=== PATIENT | female | born 1955 | race Caucasian/White ===

== ENCOUNTER 2024-08-24 11:22 | Day surgery (SDC) | payer MEDICARE, OTHER ==
[~2024-08-24] VITALS: Ht 157.5 cm; Wt 78.4 kg
[2024-08-24] VITALS (14 sets, daily range): BP systolic 135–165; BP diastolic 81–107; PULSE 64–80; RESP 10–18; TEMP 98.2; O2SAT 94–99
[~2024-08-24 11:22] MED LIST: ALEN70TA60 PO; AMLO-315 PO; APIX5TAB5 PO; CALC-774 PO; IRON PO; LEVO75CA5 PO; MULT-1085 PO; PANT40TA54 PO; SOTA80TA73 PO; URSO250T12 PO; [UNRECOGNIZED DRUG - CODE] PO
[2024-08-24] MEDS ORDERED: URSO500T10 PO (11:59)
[2024-08-24 12:03] LABS: BASOPHILS % (AUTO) 0.7 % (0-1); EOSINOPHILS # (AUTO) 0.1 X10'3 (0-0.9); EOSINOPHILS % (AUTO) 2.6 % (0-6); HEMATOCRIT 44.7 % (35.0-45.0); HEMOGLOBIN 14.8 g/dl (12.0-16.0); LYMPHOCYTES # (AUTO) 1.4 X10'3 (1.1-4.8); LYMPHOCYTES % (AUTO) 25.6 % (21-51); MEAN CORPUSCULAR HEMOGLOBIN 30.6 PG (27.0-31.0); MEAN CORPUSCULAR HGB CONC 33.1 g/dL (33.0-36.5); MEAN CORPUSCULAR VOLUME 92.4 FL (78-98); MEAN PLATELET VOLUME 8.1 FL (7.4-10.4); MONOCYTES # (AUTO) 0.5 X10'3 (0-0.9); MONOCYTES % (AUTO) 8.5 % (2-12); NEUTROPHILS # (AUTO) 3.5 X10'3 (1.8-7.7); NEUTROPHILS % (AUTO) 62.6 % (42-75); PLATELET COUNT 277 X10'3 (140-440); RED BLOOD COUNT 4.84 X10'6 (4.20-5.60); RED CELL DISTRIBUTION WIDTH 13.1 % (11.5-14.5); WHITE BLOOD COUNT 5.5 X10'3 (4.5-11.0)
[2024-08-24 12:15] LABS: ALBUMIN 3.9 G/DL (3.4-5.0); ANION GAP 8 (8-16); BLOOD UREA NITROGEN 11 MG/DL (7-18); BUN/CREATININE RATIO 19.6 (10.0-20.0); CHLORIDE 105 MMOL/L (99-107); CREATININE 0.56 MG/DL (0.40-0.90); GLUCOSE 92 MG/DL (70-104); POTASSIUM 4.2 MMOL/L (3.5-5.1); SODIUM 140 MMOL/L (135-145); TOTAL CARBON DIOXIDE 26.7 MMOL/L (24-32); eCRCL 75 ML/MIN; eGFR > 90 ML/MIN
[2024-08-24 12:22] LABS: APTT 30 SECONDS (22-32); PROTHROMBIN TIME 10.9 SECONDS (9.0-12.0)
[2024-08-24] MEDS: fentaNYL/PF 50MCG/1 ML 2ML syringe IV ONE (13:21)
[2024-08-24] MEDS: MIDAZolam 1mg/ml 10ml vial IV ONE (13:21)
[2024-08-24] MEDS ORDERED: ASPI-611 PO (14:07)
[2024-08-24] MEDS ORDERED: CLOP75TA34 PO (14:07)
== END 2024-08-24 14:30 | disposition home or self-care (01) ==
LOC: SSTAY O 11:22 → EDSTATUS 13:30 → SSTAY O 14:30
PROVIDERS: ATTEND Student in an Organized Health Care Education/Training Program
DX: I48.91 Unspecified atrial fibrillation (principal); I10 Essential (primary) hypertension; G47.33 Obstructive sleep apnea (adult) (pediatric); Z85.3 Personal history of malignant neoplasm of breast
CPT/HCPCS: 36415; 80048; 85025; 85610; 85730; 93312; 93325; 94760; J2250; J3010; J7030